=== PATIENT | male | born 1980 | race Caucasian/White ===

== ENCOUNTER 2023-07-26 08:29 | Emergency (ER) | payer OTHER ==
[2023-07-26 08:54] VITALS: TEMP 98.3; BMI 27.1
[2023-07-26] MEDS ORDERED: ALPRAZolam 0.25 MG TABLET PO PRN (09:32)
[2023-07-26 10:02] VITALS: RESP 16
[2023-07-26 10:19] LABS: BASO % 0.4 % (0-2.0); EOS % 0.2 % (0-4.5); HEMATOCRIT 45.6 % (35.4-49); HEMOGLOBIN 15.4 GM/dL (11.7-16.9); LYMPH % 12.7 % (8-40); MCH 27.2 pg (25.7-33.7); MCHC 33.7 g/dl (32.0-35.9); MEAN CELL VOLUME 80.7 fl (80-96); MEAN PLT VOLUME 7.7 fl (7.5-11.1); MONO % 10.9 % (3.8-10.2); NEUT % 75.8 % (42.8-82.8); PLATELET COUNT 287 10^3/uL (134-434); RBC 5.66 M/mm3 (4.00-5.60); RDW 13.6 % (11.9-15.9); WHITE BLOOD COUNT 10.9 K/mm3 (4.0-10.0)
[2023-07-26 10:24] LABS: INR 0.94 (0.83-1.09); PROTHROMBIN TIME (PATIENT) 10.6 SEC (9.7-13.0)
[2023-07-26 10:26] LABS: ACTIVATED PTT 33.5 SECONDS (25.2-36.5)
[2023-07-26 10:32] LABS: POTASSIUM 4.2 mmol/L (3.5-5.1)
[2023-07-26 10:35] LABS: CALCIUM 9.2 mg/dL (8.5-10.1)
[2023-07-26 10:36] LABS: ALBUMIN 4.3 g/dl (3.4-5.0); BLOOD UREA NITROGEN 11.2 mg/dL (7-18)
[2023-07-26] MEDS ORDERED: ALPRAZolam 0.25 MG TABLET ONE (10:37)
[2023-07-26 10:40] LABS: BILIRUBIN,TOTAL 0.7 mg/dL (0.2-1); TOT PROT 8.2 g/dl (6.4-8.2)
[2023-07-26] MEDS: ALPRAZolam 0.25 MG TABLET PO ONE (10:45)
[2023-07-26 11:16] VITALS: BP 150/90; PULSE 93
== END 2023-07-26 11:03 | disposition home or self-care (01) ==
LOC: JER 08:29 → EDBD 08:29 → JER 11:03
DX: R42 Dizziness and giddiness (principal); I10 Essential (primary) hypertension; R06.02 Shortness of breath
CPT/HCPCS: 36415; 80053; 84484; 85025; 85379; 85610; 85730; 93005; 93010; 99284-25